=== PATIENT | female | born 1980 | race Caucasian/White ===

== ENCOUNTER 2016-12-22 19:25 | Emergency (ER) | payer SELFPAY ==
[~2016-12-22] VITALS: Ht 177.8 cm; Wt 77.2 kg
[2016-12-22 19:30] VITALS: BP 135/95; PULSE 74; RESP 16; TEMP 99.2; O2SAT 100
[2016-12-22] MEDS ORDERED: TRAM50TA PO (19:56)
[2016-12-22] MEDS ORDERED: DICL75TA PO (19:56)
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
== END 2016-12-22 20:35 | disposition home or self-care (01) ==
LOC: PHEFT 19:25
DX: S60.211A Contusion of right wrist, initial encounter (principal); W20.8XXA Other cause of strike by thrown, projected or falling object, initial encounter; Y93.E6 Activity, residential relocation
CPT/HCPCS: 73110; 99283